=== PATIENT | male | born 1940 | race Caucasian/White ===

== ENCOUNTER 2022-04-25 10:08 | Outpatient (CLI) | payer MEDICARE, BC | END 2022-04-25 10:09 | disposition home or self-care (01) | LOC: CSHSPEC 10:08 | PROVIDERS: ATTEND Family Medicine | DX: I67.9 Cerebrovascular disease, unspecified (principal); R25.1 Tremor, unspecified; R25.9 Unspecified abnormal involuntary movements; I69.311 Memory deficit following cerebral infarction; I69.398 Other sequelae of cerebral infarction; R26.89 Other abnormalities of gait and mobility; R27.9 Unspecified lack of coordination; Z95.0 Presence of cardiac pacemaker; R91.1 Solitary pulmonary nodule; I62.00 Nontraumatic subdural hemorrhage, unspecified | CPT/HCPCS: 70551; 71045 ==